=== PATIENT | female | born 1950 | race Caucasian/White ===

== ENCOUNTER 2019-07-09 09:19 | Emergency (ER) | payer SELFPAY ==
[~2019-07-09] VITALS: Wt 92.1 kg
[2019-07-09 10:38] LABS: BILIRUBIN NEGATIVE (NEGATIVE); BLOOD NEGATIVE (NEGATIVE); CLARITY SL CLOUDY (CLEAR); COLOR YELLOW (YELLOW); GLUCOSE 3+ (NEGATIVE); KETONE NEGATIVE (NEGATIVE); LEUKO ESTERASE TRACE (NEGATIVE); NITRITE NEGATIVE (NEGATIVE); PH 7.5 (5.0-9.0); UROBILINOGEN 0.2 E.U./dl (0.2-1.0)
[2019-07-09 10:48] LABS: BACTERIA 2+
[2019-07-09] MEDS ORDERED: PREDNISONE20 M1 PO (12:20)
== END 2019-07-09 13:17 | disposition home or self-care (01) ==
LOC: ED 09:19
PROVIDERS: Physician Assistant
DX: S30.0XXA Contusion of lower back and pelvis, initial encounter (principal); E78.5 Hyperlipidemia, unspecified; J45.909 Unspecified asthma, uncomplicated; J44.9 Chronic obstructive pulmonary disease, unspecified; E11.9 Type 2 diabetes mellitus without complications; I10 Essential (primary) hypertension; G62.9 Polyneuropathy, unspecified; Z86.73 Personal history of transient ischemic attack (TIA), and cerebral infarction without residual deficits; W18.39XA Other fall on same level, initial encounter; Y93.89 Activity, other specified; Y92.89 Other specified places as the place of occurrence of the external cause; Y99.8 Other external cause status

== ENCOUNTER 2020-07-13 11:36 | Emergency (ER) | payer MEDICARE, MEDICAID ==
[~2020-07-13] VITALS: Wt 88.9 kg
[~2020-07-13 11:36] MED LIST: PREDNISONE20 M1 PO
[2020-07-13] MEDS ORDERED: CYMBALTA60 MG PO (11:49)
[2020-07-13] MEDS ORDERED: GAVILAX17 GM PO (11:52)
[2020-07-13] MEDS ORDERED: Glimepiride1 MG PO (11:53)
[2020-07-13] MEDS ORDERED: GLIMEPIRIDE2 MG PO (11:53)
[2020-07-13] MEDS ORDERED: HYDROCODONE-AC1 EAC1 PO (11:55)
[2020-07-13] MEDS ORDERED: OMEGA 3 1,0001 EACH PO (11:57)
[2020-07-13] MEDS ORDERED: MELATONIN3 MG PO (11:57)
[2020-07-13] MEDS ORDERED: STIMULANT LAXA1 EACH PO (11:58)
[2020-07-13] MEDS ORDERED: TYLENOL EXTRA500 M2 PO (11:58)
[2020-07-13] MEDS ORDERED: SYSTANE 0.3-0.415 ML OU (12:00)
[2020-07-13 12:39] LABS: BASO # 0.1 10*3/uL (0.0-0.1); BASO % 0.6 % (0.0-1.0); EOS # 0.1 10*3/uL (0.0-0.4); EOS % 0.8 % (1.0-4.0); HEMATOCRIT 40.2 % (37.0-47.0); LYMPH # 0.9 10*3/uL (1.3-4.4); LYMPH % 8.8 % (27.0-41.0); MEAN CELL VOLUME 90.7 fl (81.0-99.0); MEAN CORPUSCULAR HGB 28.4 pg (27.0-31.0); MEAN CORPUSCULAR HGB CONC 31.3 g/dl (33.0-37.0); MEAN PLATELET VOLUME 10.5 fl (9.6-12.3); MONO # 0.4 10*3/uL (0.1-1.0); MONO % 4.1 % (3.0-9.0); NEUT # 8.8 10*3/uL (2.3-7.9); NEUT % 84.7 % (47.0-73.0); PLATELET COUNT AUTOMATED 301 10*3/uL (130-400); RED BLOOD COUNT 4.43 10*6/uL (4.10-5.10); RED CELL DISTRI WIDTH 13.3 % (0-14.5); WHITE BLOOD COUNT 10.4 10*3/uL (4.8-10.8)
[2020-07-13 13:03] LABS: ALBUMIN 3.3 gm/dl (3.1-4.5); ALKALINE PHOSPHATASE 179 U/L (45-117); BUN 16 mg/dl (7-24); CHLORIDE 101 mmol/L (98-107); CREATININE 1.17 mg/dL (0.55-1.02); POTASSIUM 4.1 mmol/L (3.5-5.1); SGOT/AST 16 IU/L (3-35); SGPT/ALT 27 U/L (12-78); SODIUM 135 mmol/L (136-145); TOTAL PROTEIN 7.7 gm/dL (6.4-8.2)
[2020-07-13 13:04] LABS: TROPONIN I < 0.015 ng/ml (<0.045)
[2020-07-13 13:07] LABS: BILIRUBIN Negative (Negative); BLOOD Negative (Negative); CLARITY Cloudy (Clear); COLOR Yellow (Yellow); GLUCOSE 3+ (Negative); KETONE Negative (Negative); LEUKO ESTERASE Trace (Negative); NITRITE Negative (Negative); SPECIFIC GRAVITY 1.025 (1.001-1.030); UROBILINOGEN 0.2 E.U./dl (0.0-1.0)
[2020-07-13 13:29] LABS: BACTERIA 2+
== END 2020-07-13 16:39 | disposition home or self-care (01) ==
LOC: ED 11:36 → EDBD 11:38 → ED 16:39
PROVIDERS: Nurse Practitioner Family
DX: E11.65 Type 2 diabetes mellitus with hyperglycemia (principal); E86.0 Dehydration; R42 Dizziness and giddiness; M54.5 Low back pain; J44.9 Chronic obstructive pulmonary disease, unspecified; I10 Essential (primary) hypertension; E11.40 Type 2 diabetes mellitus with diabetic neuropathy, unspecified; E78.5 Hyperlipidemia, unspecified; Z79.899 Other long term (current) drug therapy; Z86.73 Personal history of transient ischemic attack (TIA), and cerebral infarction without residual deficits

== ENCOUNTER 2021-05-20 16:58 | Emergency (ER) | payer OTHER ==
[~2021-05-20] VITALS: Ht 167.6 cm; Wt 90.7 kg
[~2021-05-20 16:58] MED LIST changes: +CYMBALTA60 MG PO; +GAVILAX17 GM PO; +GLIMEPIRIDE2 MG PO; +Glimepiride1 MG PO; +HYDROCODONE-AC1 EAC1 PO; +MELATONIN3 MG PO; +OMEGA 3 1,0001 EACH PO; +STIMULANT LAXA1 EACH PO; +SYSTANE 0.3-0.415 ML OU; +TYLENOL EXTRA500 M2 PO
[2021-05-20 18:27] LABS: BASO % 0.4 % (0.0-1.0); EOS # 0.2 10*3/uL (0.0-0.4); EOS % 1.6 % (1.0-4.0); HEMATOCRIT 39.1 % (37.0-47.0); LYMPH # 1.3 10*3/uL (1.3-4.4); LYMPH % 12.4 % (27.0-41.0); MEAN CELL VOLUME 91.6 fl (81.0-99.0); MEAN CORPUSCULAR HGB 29.7 pg (27.0-31.0); MEAN CORPUSCULAR HGB CONC 32.5 g/dl (33.0-37.0); MEAN PLATELET VOLUME 10.4 fl (9.6-12.3); MONO # 0.7 10*3/uL (0.1-1.0); MONO % 6.3 % (3.0-9.0); NEUT # 8.4 10*3/uL (2.3-7.9); NEUT % 78.6 % (47.0-73.0); PLATELET COUNT AUTOMATED 320 10*3/uL (130-400); RED BLOOD COUNT 4.27 10*6/uL (4.10-5.10); RED CELL DISTRI WIDTH 13.2 % (0-14.5); WHITE BLOOD COUNT 10.7 10*3/uL (4.8-10.8)
[2021-05-20 18:43] LABS: INTERNATIONAL NORM RATIO 0.9 (2.0-3.5)
[2021-05-20 18:48] LABS: ALBUMIN 3.3 gm/dl (3.1-4.5); ALKALINE PHOSPHATASE 182 U/L (45-117); BUN 22 mg/dl (7-24); CHLORIDE 102 mmol/L (98-107); CREATININE 1.08 mg/dL (0.55-1.02); POTASSIUM 4.7 mmol/L (3.5-5.1); SGOT/AST 10 IU/L (3-35); SGPT/ALT 30 U/L (12-78); SODIUM 136 mmol/L (136-145); TOTAL PROTEIN 8.1 gm/dL (6.4-8.2)
[2021-05-20 19:01] LABS: BILIRUBIN Negative (Negative); BLOOD Negative (Negative); CLARITY Clear (Clear); COLOR Yellow (Yellow); GLUCOSE 3+ (Negative); KETONE Negative (Negative); LEUKO ESTERASE Negative (Negative); NITRITE Negative (Negative); SPECIFIC GRAVITY 1.025 (1.001-1.030); UROBILINOGEN 0.2 E.U./dl (0.0-1.0)
[2021-05-20 19:13] LABS: EPITHELIAL CELLS 0-2; RBC 0-2 rbc/hpf (0-2); WBC 0-2 wbc/hpf (0-5)
[2021-05-20 19:14] LABS: BACTERIA TRACE
== END 2021-05-20 23:52 ==
LOC: ED 16:58
PROVIDERS: Physician Assistant
DX: R10.9 Unspecified abdominal pain (principal); Z20.822 Contact with and (suspected) exposure to COVID-19; R53.1 Weakness; Z79.899 Other long term (current) drug therapy